=== PATIENT | male | born 1950 | race Caucasian/White ===

== ENCOUNTER 2021-03-31 17:35 | Emergency (ER) | payer MEDICARE ==
[2021-03-31] MEDS ORDERED: Lidocaine 1% 30 ML SDV INJECT ONE (17:45)
== END 2021-03-31 17:45 | disposition home or self-care (01) ==
LOC: LB.ED 17:35
DX: S60.454A Superficial foreign body of right ring finger, initial encounter (principal); W45.8XXA Other foreign body or object entering through skin, initial encounter
CPT/HCPCS: 99283